=== PATIENT | male | born 1970 | race African-American/Black ===

== ENCOUNTER 2023-09-26 11:01 | Emergency (ER) | payer BC, SELFPAY ==
[2023-09-26] MEDS ORDERED: Amlodipine 5 MG TAB ONE (11:38)
== END 2023-09-26 11:40 | disposition home or self-care (01) ==
LOC: NAV ERS 11:01
DX: I10 Essential (primary) hypertension (principal); F10.20 Alcohol dependence, uncomplicated
CPT/HCPCS: 99283

== ENCOUNTER 2023-10-23 16:20 | Emergency (ER) | payer BC ==
[2023-10-23] MEDS ORDERED: Sodium Chloride 0.9% 1,000 ML ONE ×2 (16:39→18:51)
[2023-10-23 16:53] LABS: #Basophils 0.1 thou/uL (0.0-0.2); #Lymphocytes 1.4 thou/uL (1.20-3.40); #Monocytes 0.8 thou/uL (0.11-0.59); #Neutrophils 3.2 thou/uL (1.40-6.50); %Eosinophils 0.4 % (0.0-10.0); %Lymphocytes 25.2 % (21.0-51.0); %Monocytes 14.3 % (0.0-10.0); %Neutrophils 59.1 % (42.0-75.0); Hematocrit 35.5 % (42.0-52.0); Hemoglobin 11.3 g/dL (14.0-18.0); Mean Corpuscular HGB CONC 31.8 g/dL (32.0-36.0); Mean Corpuscular Hemoglobin 25.3 pg (27.0-31.0); Mean Corpuscular Volume 79.6 fl (78.0-98.0); Mean Platelet Volume 8.8 fL (7.4-10.4); Platelet Count 184 10x3/uL (130-400); RBC Distribution Width 14.8 % (11.5-14.5); Red Blood Cell (RBC) Count 4.46 mill/uL (4.70-6.10); White Blood Cell (WBC) Count 5.4 10x3/uL (4.8-10.8)
[2023-10-23 17:10] LABS: ALT (SGPT) 27 U/L (8-55); AST (SGOT) 150 U/L (5-34); Albumin 3.5 g/dL (3.5-5.0); Alcohol 154.8 mg/dL (Less than 10); Alkaline Phosphatase 114 U/L (40-110); Anion Gap 15 mmol/L (10-20); BUN (Urea Nitrogen) 13 mg/dL (8.4-25.7); Bilirubin, Total 0.7 mg/dL (0.2-1.2); Calc. Creatinine Clearance 0 mL/min (70-130); Calcium 7.9 mg/dL (7.8-10.44); Carbon Dioxide 27 mmol/L (22-29); Chloride 97 mmol/L (98-107); Estimated GFR 85; Globulin 4.1 g/dL (2.4-3.5); Glucose 98 mg/dL (70-105); Lipase 21 U/L (8-78); Potassium 3.2 mmol/L (3.5-5.1); Protein, Total 7.6 g/dL (6.0-8.3); Sodium 136 mmol/L (136-145); Troponin I 0.021 ng/mL (< 0.028)
[2023-10-23 17:30] LABS: Magnesium 0.7 mg/dL (1.6-2.6)
[2023-10-23] MEDS ORDERED: Potassium Chloride 20 MEQ TAB ONE (17:46)
[2023-10-23] MEDS ORDERED: Magnesium 2 GM/50 ML BAG (IN WATER) ONE (17:46)
== END 2023-10-23 20:39 | disposition home or self-care (01) ==
LOC: NAV ERS 16:20
DX: I95.1 Orthostatic hypotension (principal); E86.0 Dehydration; E87.6 Hypokalemia; E78.5 Hyperlipidemia, unspecified; E83.42 Hypomagnesemia; I10 Essential (primary) hypertension; Z79.899 Other long term (current) drug therapy
CPT/HCPCS: 70450; 80053; 80307; 83690; 83735; 84484; 85025; 93005; 94760; 96361; 96365; J3475; J7050